=== PATIENT | male | born 1985 | race Caucasian/White ===

== ENCOUNTER 2021-10-17 17:36 | Emergency (ER) | payer OTHER ==
[2021-10-17] MEDS ORDERED: Acetaminophen 500 MG TAB ONE (20:31)
[2021-10-18 19:34] LABS: SARS-CoV-2 PCR by NAA DETECTED (NotDetected)
== END 2021-10-17 21:40 | disposition home or self-care (01) ==
LOC: CSHERS 17:36
DX: U07.1 COVID-19 (principal); F17.210 Nicotine dependence, cigarettes, uncomplicated
CPT/HCPCS: 87804; 99283; U0003; U0005

== ENCOUNTER 2024-08-15 10:16 | Emergency (ER) | payer OTHER, SELFPAY ==
[2024-08-15] MEDS ORDERED: Ibuprofen 200 MG TAB ONE (12:37)
[2024-08-15] MEDS ORDERED: Cephalexin 250 MG CAP ONE (12:38)
== END 2024-08-15 12:54 | disposition home or self-care (01) ==
LOC: CSHERS 10:16
DX: S60.312A Abrasion of left thumb, initial encounter (principal); L03.012 Cellulitis of left finger; F17.200 Nicotine dependence, unspecified, uncomplicated; X58.XXXA Exposure to other specified factors, initial encounter; Y93.89 Activity, other specified; Y92.69 Other specified industrial and construction area as the place of occurrence of the external cause
CPT/HCPCS: 99283